=== PATIENT | male | born 1940 | race Caucasian/White ===

== ENCOUNTER → 2016-10-30 | Outpatient (CLI) | payer OTHER ==
[2016-10-30 12:18] LABS: Basophils # (auto) 0 uL; Basophils % (auto) 0.3 % (0.0-2.0); DEFINITIVE VIEW TRANSMISSION; Eosinophils # (auto) 0.2 uL; Eosinophils % (auto) 3.4 % (0.0-7.0); Hematocrit 41.4 % (41.0-53.0); Lymphocytes # (auto) 1.5 uL; Lymphocytes % (auto) 26.7 % (10.0-50.0); Mean Corpuscular Hemoglobin 37.7 pg (28.0-32.0); Mean Corpuscular Hgb Conc. 33.9 g/dL (32.0-36.0); Mean Corpuscular Volume 111.1 fL (80.0-100.0); Mean Platelet Volume 7.6 fL (7.4-10.4); Monocytes # (auto) 0.5 uL; Monocytes % (auto) 9.7 % (0.0-12.0); Neutrophils # (auto) 3.3 uL; Neutrophils % (auto) 59.9 % (37.0-80.0); Platelet Count (auto) 595 10^3/uL (140-450); Red Cell Distribution Width 14.5 % (11.6-16.0); White Blood Cell 5.5 10^3/uL (4.4-10.8)
[2016-10-30 15:36] LABS: Macrocytosis Marked
[2016-10-30 15:37] LABS: Large Platelets FEW; Platelet Estimate Increased
== END | disposition home or self-care (01) ==
LOC: LAB 11:46
PROVIDERS: ATTEND Internal Medicine
DX: D47.3 Essential (hemorrhagic) thrombocythemia (principal); D46.9 Myelodysplastic syndrome, unspecified
CPT/HCPCS: 36415; 85025

== ENCOUNTER → 2016-12-11 | Outpatient (CLI) | payer OTHER ==
[2016-12-11 12:02] LABS: Basophils # (auto) 0 uL; Basophils % (auto) 0.2 % (0.0-2.0); DEFINITIVE VIEW TRANSMISSION; Eosinophils # (auto) 0.1 uL; Eosinophils % (auto) 3.1 % (0.0-7.0); Hematocrit 41.2 % (41.0-53.0); Lymphocytes # (auto) 1.5 uL; Lymphocytes % (auto) 31.2 % (10.0-50.0); Mean Corpuscular Hemoglobin 38.3 pg (28.0-32.0); Mean Corpuscular Hgb Conc. 34.1 g/dL (32.0-36.0); Mean Corpuscular Volume 112.4 fL (80.0-100.0); Mean Platelet Volume 7.3 fL (7.4-10.4); Monocytes # (auto) 0.4 uL; Monocytes % (auto) 8.7 % (0.0-12.0); Neutrophils # (auto) 2.7 uL; Neutrophils % (auto) 56.8 % (37.0-80.0); Platelet Count (auto) 592 10^3/uL (140-450); Red Cell Distribution Width 16.9 % (11.6-16.0); White Blood Cell 4.7 10^3/uL (4.4-10.8)
[2016-12-11 14:57] LABS: Macrocytosis Marked; Platelet Estimate Increased; Stomatocytes Few
[2016-12-11 14:59] LABS: Large Platelets FEW
== END | disposition home or self-care (01) ==
LOC: LAB 11:32
PROVIDERS: ATTEND Internal Medicine
DX: D69.6 Thrombocytopenia, unspecified (principal)
CPT/HCPCS: 36415; 85025

== ENCOUNTER → 2016-12-28 | Outpatient (CLI) | payer OTHER ==
[2016-12-28 10:21] LABS: Urine RBC None Seen /hpf (0 - 3)
[2016-12-28 10:51] LABS: Urine Bilirubin Negative (Negative); Urine Blood Negative /uL (Negative); Urine Color Yellow (Yellow); Urine Glucose Normal (Normal); Urine Ketone Negative (Negative); Urine Nitrite Negative (Negative); Urine Squamous Epithelial Cell FEW /hpf (<5); Urine Urobilinogen Normal (Negative); Urine pH 5.5 (5.0-8.0)
[2016-12-28 10:57] LABS: Basophils # (auto) 0 uL; Basophils % (auto) 0.3 % (0.0-2.0); DEFINITIVE VIEW TRANSMISSION; Eosinophils # (auto) 0.1 uL; Eosinophils % (auto) 3.6 % (0.0-7.0); Hematocrit 41.3 % (41.0-53.0); Hemoglobin 13.8 g/dL (13.5-17.5); Lymphocytes % (auto) 31.8 % (10.0-50.0); Mean Corpuscular Hemoglobin 38.8 pg (28.0-32.0); Mean Corpuscular Hgb Conc. 33.3 g/dL (32.0-36.0); Mean Corpuscular Volume 116.3 fL (80.0-100.0); Mean Platelet Volume 7.4 fL (7.4-10.4); Monocytes # (auto) 0.4 uL; Monocytes % (auto) 12.1 % (0.0-12.0); Neutrophils # (auto) 1.7 uL; Neutrophils % (auto) 52.2 % (37.0-80.0); Platelet Count (auto) 492 10^3/uL (140-450); Red Cell Distribution Width 16.8 % (11.6-16.0); White Blood Cell 3.3 10^3/uL (4.4-10.8)
[2016-12-28 11:20] LABS: Albumin 3.8 g/dL (3.4-5.0); BUN/Creatinine Ratio 19.2; Bilirubin, Total 0.8 mg/dL (0.2-1.0); Calcium 8.6 mg/dL (8.5-10.1); Potassium 3.9 mmol/L (3.5-5.1); Total Protein 7.1 g/dL (6.4-8.2)
[2016-12-28 13:47] LABS: Macrocytosis Marked
[2016-12-28 13:49] LABS: Platelet Estimate Increased
[2016-12-28 13:50] LABS: Stomatocytes Few
== END | disposition home or self-care (01) ==
LOC: LAB 09:24
DX: I10 Essential (primary) hypertension (principal); R73.9 Hyperglycemia, unspecified
CPT/HCPCS: 36415; 80053; 80061; 81001; 83036; 84443; 85025

== ENCOUNTER 2017-01-19 12:44 | Emergency (ER) | payer OTHER ==
[~2017-01-19] VITALS: Ht 175.3 cm; Wt 113.4 kg
[2017-01-19 13:00] VITALS: BP 161/61
[2017-01-19] MEDS ORDERED: TETANUS-DIPTH-ACEL PERTUSSIS 0.5ML SYRG IM ONE (14:00)
[2017-01-19] MEDS ORDERED: BACITRACIN TOP OINT 1 UD PKG TOP ONE (14:00)
== END 2017-01-19 15:01 | disposition home or self-care (01) ==
LOC: ER 12:44
DX: S01.01XA Laceration without foreign body of scalp, initial encounter (principal); W22.8XXA Striking against or struck by other objects, initial encounter; Y93.89 Activity, other specified; Y99.8 Other external cause status; Y92.89 Other specified places as the place of occurrence of the external cause
CPT/HCPCS: 12002; 70450; 90471; 90715

== ENCOUNTER 2017-01-27 15:13 | Emergency (ER) | payer OTHER ==
[~2017-01-27] VITALS: Ht 175.3 cm; Wt 112.0 kg
[2017-01-27 18:25] VITALS: BP 136/74
== END 2017-01-27 18:39 | disposition home or self-care (01) ==
LOC: ER 15:18
DX: S01.91XD Laceration without foreign body of unspecified part of head, subsequent encounter (principal); I10 Essential (primary) hypertension; Z48.02 Encounter for removal of sutures

== ENCOUNTER → 2017-02-09 | Outpatient (CLI) | payer OTHER ==
[2017-02-09 13:09] LABS: Basophils # (auto) 0 uL; Basophils % (auto) 0.3 % (0.0-2.0); CONDITION Y; DEFINITIVE SEE PRINTOUT; Eosinophils # (auto) 0.1 uL; Eosinophils % (auto) 3.2 % (0.0-7.0); Hematocrit 41.6 % (41.0-53.0); Hemoglobin 14.3 g/dL (13.5-17.5); Lymphocytes # (auto) 1.5 uL; Lymphocytes % (auto) 39.6 % (10.0-50.0); Mean Corpuscular Hemoglobin 40.9 pg (28.0-32.0); Mean Corpuscular Hgb Conc. 34.3 g/dL (32.0-36.0); Mean Corpuscular Volume 119.5 fL (80.0-100.0); Monocytes # (auto) 0.4 uL; Monocytes % (auto) 10.9 % (0.0-12.0); Neutrophils # (auto) 1.7 uL; Platelet Count (auto) 407 10^3/uL (140-450); Red Cell Distribution Width 18.4 % (11.6-16.0); White Blood Cell 3.8 10^3/uL (4.4-10.8)
== END | disposition home or self-care (01) ==
LOC: LAB 12:48
PROVIDERS: ATTEND Internal Medicine
DX: D64.9 Anemia, unspecified (principal)
CPT/HCPCS: 36415; 85025

== ENCOUNTER → 2017-04-05 | Outpatient (CLI) | payer OTHER ==
[2017-04-05 12:26] LABS: CONDITION Y; DEFINITIVE SEE PRINTOUT; Hematocrit 40.7 % (41.0-53.0); Mean Corpuscular Hemoglobin 43.1 pg (28.0-32.0); Mean Corpuscular Hgb Conc. 34.5 g/dL (32.0-36.0); Mean Platelet Volume 7.4 fL (7.4-10.4); Platelet Count (auto) 531 10^3/uL (140-450); Red Cell Distribution Width 16.2 % (11.6-16.0); White Blood Cell 4.2 10^3/uL (4.4-10.8)
[2017-04-05 12:56] LABS: Metamyelocytes % 0; Myelocytes % 0; Promyelocytes % 0; Reactive Lymphocytes 0
[2017-04-05 16:40] LABS: Platelet Estimate Increased
[2017-04-05 16:41] LABS: Anisocytosis Moderate; Macrocytosis Marked
== END | disposition home or self-care (01) ==
LOC: LAB 11:57
PROVIDERS: ATTEND Internal Medicine
DX: D46.9 Myelodysplastic syndrome, unspecified (principal)
CPT/HCPCS: 36415; 85007; 85027